=== PATIENT | female | born 1975 | race Caucasian/White ===

== ENCOUNTER 2018-11-23 11:03 | Outpatient (CLI) | payer OTHER | END 2018-11-23 11:16 | disposition home or self-care (01) | LOC: SONOGRAMA 11:03 | DX: N84.0 Polyp of corpus uteri (principal) ==

== ENCOUNTER 2020-01-01 06:00 | Outpatient (CLI) | payer OTHER | END 2020-01-01 06:05 | disposition home or self-care (01) | LOC: LAB 06:00 → ADM 07:30 → CIR.AMB 01-04 07:30 → ADM 01-04 07:30 → CIR.AMB 01-04 10:00 → EDSTATUS 01-08 07:30 → CIR.AMB 01-08 08:30 | PROVIDERS: ATTEND Obstetrics & Gynecology | DX: N84.0 Polyp of corpus uteri (principal); D25.9 Leiomyoma of uterus, unspecified; Z20.828 Contact with and (suspected) exposure to other viral communicable diseases; R50.9 Fever, unspecified; I10 Essential (primary) hypertension; J45.998 Other asthma; Z01.810 Encounter for preprocedural cardiovascular examination; Z01.812 Encounter for preprocedural laboratory examination; Z01.811 Encounter for preprocedural respiratory examination ==

== ENCOUNTER 2020-03-21 05:49 | Day surgery (SDC) | payer OTHER ==
[2020-03-21] MEDS ORDERED: DOXYCYCLINE HY100 M3 PO (13:58)
[2020-03-21] MEDS ORDERED: Tylenol #3 PO (13:58)
== END 2020-03-21 17:02 | disposition home or self-care (01) ==
LOC: LAB 05:49 → CIR.AMB 05:49 → LAB 08:54 → CIR.AMB 17:02
PROVIDERS: ATTEND Obstetrics & Gynecology
DX: N84.0 Polyp of corpus uteri (principal); D25.0 Submucous leiomyoma of uterus; Z20.828 Contact with and (suspected) exposure to other viral communicable diseases